=== PATIENT | male | born 1955 | race American Indian/Alaskan Native ===

== ENCOUNTER 2017-08-16 22:31 | Emergency (ER) | payer OTHER ==
[2017-08-16 23:05] VITALS: BP 146/79; PULSE 86; RESP 20; TEMP 97.9; O2SAT 100
--- NOTE | 2017-08-16 23:24 | C.PDOC ---
History Of Present Illness 62 year old male presents to the ED c/o an occasional lump on the left groin area for the past 6 months. Patients states he does regular athletic activities , and the lump is easily digitally reducible. Time Seen by Provider: 08/16/17 23:12 Chief Complaint (Nursing): Male Genitourinary History Per: Patient History/Exam Limitations: no limitations Onset/Duration Of Symptoms: Hrs Current Symptoms Are (Timing): Gone Quality Of Discomfort: "Pain" Associated Symptoms: denies: Fever, Chills, Nausea, Vomiting, Urinary Symptoms Recent travel outside of the [place]: No Additional History Per: Patient Past Medical History Reviewed: Historical Data, Nursing Documentation, Vital Signs Vital Signs: Last Vital Signs Temp 97.9 F 08/16/17 22:58 Pulse 86 08/16/17 22:58 Resp 20 08/16/17 22:58 BP 146/79 08/16/17 22:58 Pulse Ox 100 08/16/17 23:24 - Medical History PMH: No Chronic Diseases Surgical History: No Surg Hx Family History: States: Unknown Family Hx - Social History Hx Alcohol Use: No Hx Substance Use: No Review Of Systems Constitutional: Negative for: Fever, Chills Cardiovascular: Negative for: Chest Pain Respiratory: Negative for: Cough, Shortness of Breath Gastrointestinal: Negative for: Nausea, Vomiting, Abdominal Pain Genitourinary: Positive for: Other (left groin lump) Neurological: Negative for: Weakness, Numbness Physical Exam - Physical Exam Appears: Non-toxic, No Acute Distress, Other (Black male, healthy athletic) Skin: Normal Color, Warm, Dry Head: Atraumatic, Normacephalic Nose: No Discharge Oral Mucosa: Moist Neck: Normal ROM, Supple Chest: Symmetrical Cardiovascular: Rhythm Regular, No Murmur Respiratory: Normal Breath Sounds, No Accessory Muscle Use, No Rales, No Rhonchi , No Wheezing Gastrointestinal/Abdominal: Soft, No Tenderness, No Guarding, No Rebound Extremity: Normal ROM, Other (3x3 cm inguinal hernia, non tender, easily reducible ) Neurological/Psych: Oriented x3, Normal Speech, Normal Cognition Gait: Steady ED Course And Treatment O2 Sat by Pulse Oximetry: 100 (On RA) Pulse Ox Interpretation: Normal Medical Decision Making Medical Decision Makin months evolution of slowly developing L inguinal hernia Not-incarcerated, easily reducable ok for opt f/u and elective procedure. Disposition Doctor Will See Patient In The: Office Counseled Patient/Family Regarding: Studies Performed, Diagnosis - Disposition [facility] Jonah Damian MD [Staff Provider] - Gucci Sparrow MD [Staff Provider] - Disposition: HOME/ ROUTINE Disposition Time: 23:23 Condition: GOOD Additional Instructions: please follow-up with [facility] for evaluation and elective repair of L inguinal hernia Dr Nati Lua If hernia pain- lay supine and reduce with gentle digital pressure as instructed during your ER visit Return to the ER if you are ever unable to reduce the hernia Instructions: Inguinal Hernia (ED) Forms: [employer] (Urdu) - Clinical Impression Clinical Impression: Inguinal hernia, left - Scribe Statement The provider has reviewed the documentation as recorded by the Scribe Huseyin Sellers All medical record entries made by the Scribe were at my direction and personally dictated by me. I have reviewed the chart and agree that the record accurately reflects my personal performance of the history, physical exam, medical decision making, and the department course for this patient. I have also personally directed, reviewed, and agree with the discharge instructions and disposition.
== END 2017-08-16 23:55 | disposition home or self-care (01) ==
LOC: C.ER 22:31
DX: K40.90 Unilateral inguinal hernia, without obstruction or gangrene, not specified as recurrent (principal)